=== PATIENT | female | born 1980 | race Caucasian/White ===

== ENCOUNTER 2017-12-27 10:42 | Day surgery (SDC) | payer OTHER ==
[~2017-12-27] VITALS: Ht 160 cm; Wt 72.0 kg
[~2017-12-27 10:42] MED LIST: AZIT500 PO; Amitriptyline H25 MG PO; IBUP800 PO; NAPR500 PO; OXYACE5T PO; PENVK500 PO
[2017-12-27] MEDS ORDERED: RANI150EL (11:43)
[2017-12-27] MEDS ORDERED: Verotin-Gr Cap1 EACH (11:44)
[2017-12-27] MEDS ORDERED: IRON150C (11:44)
[2017-12-27] MEDS ORDERED: Lecithin-191200 MG (11:44)
== END 2017-12-27 14:40 | disposition home or self-care (01) ==
LOC: ORSCSDS 10:42
PROVIDERS: Obstetrics & Gynecology
PROC: 0UB74ZZ Excision of Bilateral Fallopian Tubes, Percutaneous Endoscopic Approach (ICD-10-PCS; principal; 2017-12-27 12:00)
DX: Z30.2 Encounter for sterilization (principal); N80.3 Endometriosis of pelvic peritoneum; Z87.891 Personal history of nicotine dependence
CPT/HCPCS: J0690; J1100; J1885; J2250; J2405; J2710; J3010; J7120

== ENCOUNTER → 2018-08-30 | Outpatient (CLI) | payer OTHER ==
[~2018-08-30] MED LIST changes: +IRON150C; +Lecithin-191200 MG; +RANI150EL; +Verotin-Gr Cap1 EACH
== END | disposition home or self-care (01) ==
LOC: LAB 17:20 → LAB SHORT 17:20
DX: J02.9 Acute pharyngitis, unspecified (principal)
CPT/HCPCS: 87070

== ENCOUNTER → 2022-01-12 | Outpatient (CLI) | payer OTHER ==
[~2022-01-12] MED LIST changes: +Robaxin750 MG PO
== END | disposition home or self-care (01) ==
LOC: LAB SHORT 10:35
DX: N92.1 Excessive and frequent menstruation with irregular cycle (principal)
CPT/HCPCS: 88305

== ENCOUNTER → 2022-03-02 | Outpatient (CLI) | payer OTHER ==
[2022-03-03 11:41] LABS: Candida species (DNA Probe) Negative (NEGATIVE); G. vaginalis (DNA Probe) Positive (NEGATIVE); T. vaginalis (DNA Probe) Negative (NEGATIVE)
== END | disposition home or self-care (01) ==
LOC: LAB 15:45 → LAB SHORT 15:45
PROVIDERS: Obstetrics & Gynecology
DX: N89.8 Other specified noninflammatory disorders of vagina (principal)
CPT/HCPCS: 87480; 87510; 87660